=== PATIENT | male | born 1965 | race Caucasian/White ===

== ENCOUNTER 2019-09-29 14:43 | Outpatient (CLI) | payer MEDICARE ==
[~2019-09-29 14:43] MED LIST: Iopamidol 370 76% 100 ML VIAL ONE
--- NOTE | 2019-09-29 15:45 | CT ---
CTA OF THE HEAD WITH AND WITHOUT IV CONTRAST AND 3D REFORMATTED IMAGING CTA OF THE NECK WITH IV CONTRAST AND 3D REFORMATTED IMAGING 3D VOLUME RENDERING: DATE: 09/29/2019. TIME: 12:00 AM. HISTORY: Occlusion. COMPARISON: None. FINDINGS: There is focal decreased attenuation involving anterior division left MCA compatible with subacute in farction. There is deep white matter lacunar infarction, multifocal, involving bilateral centrum semiovale. Right: CCA:There is a short segment moderate stenosis of the proximal right CCA approximately 50% stenosis r elated to soft plaque. ICA:There is calcified and noncalcified plaque involving the carotid bulb and extending into the prox imal aspect of the cervical right ICA with mild to moderate stenosis. There is calcification at the intracranial course of the distal right ICA and involving the carotid terminus where there is moderat e focal stenosis. MCA:No significant stenosis. CYNDIE:No significant stenosis. [employer]:No significant stenosis. LEFT: CCA:There is soft plaque of the mid left common carotid artery, resulting in mild to moderate stenosi s. ICA:There is occlusion of the proximal left ICA by predominantly soft plaque, just distal to the mcfarland tid bulb. There is resultant diffuse markedly narrowing of the contrast opacified ICA lumen to the level of the carotid terminus which could either relate to diffuse stenosis, or dissection. MCA:No significant stenosis. CYNDIE:No significant stenosis. [employer]VER:No significant stenosis. Vertebrobasilar System: Left Vertebral:Diffuse near complete absence of contrast throughout the left vertebral artery. Right Vertebral:No significant stenosis. Basilar:No significant stenosis. IMPRESSION: 1. Occlusion of the left internal carotid artery with resultant marked narrowing of the remaining, c ephalad, cervical left internal carotic artery. 2. Near complete absence of contrast throughout the left vertebral artery Transcribed Date/Time: 09/29/2019 4:01 PM
--- NOTE | 2019-09-29 15:48 | ULT ---
BILATERAL CAROTID DUPLEX ULTRASOUND: HISTORY: Occlusion TECHNIQUE: Grayscale, color-flow and spectral Doppler ultrasound imaging of the extracranial carotid artery syst ems was performed bilaterally. FINDINGS: Exam is performed in conjunction with CTA neck. Severe plaque formation. As is depicted on the concurrent CTA, there is occlusion of the proximal left cervical ICA, as well a s absence of flow of the left vertebral artery. There is no hemodynamically significant stenosis of the imaged right ICA. Antegrade flow of the right vertebral artery is present. IMPRESSION: Concordant findings with concurrent CTA of neck, with evidence of occlusive plaque of the cervical le ft internal carotid artery, and absence of flow within the left vertebral artery. Transcribed Date/Time: 09/29/2019 3:57 PM
== END 2019-09-29 14:44 | disposition home or self-care (01) ==
LOC: BICULT 14:43
PROVIDERS: ATTEND Surgery
DX: I65.22 Occlusion and stenosis of left carotid artery (principal)
CPT/HCPCS: 70496; 70498; 93880; Q9967

== ENCOUNTER 2019-11-05 07:09 | Outpatient (CLI) | payer MEDICARE ==
--- NOTE | 2019-11-05 11:42 | CT ---
EXAM: CTA of the chest HISTORY: Left internal carotid artery occlusion with ostial stenosis of the left common carotid arter y COMPARISON: CTA neck 09/29/2019 TECHNIQUE: Multiple contiguous axial images were obtained a CTA of the chest with contrast. Sagittal and coronal 3-D MIP reformats were performed. FINDINGS: HEART: Normal in size without focal cardiac abnormality. PULMONARY ARTERIES: Normal in caliber without filling defects to suggest pulmonary emboli. THORACIC AORTA: Normal in caliber without evidence dissection or aneurysmal dilatation. AORTIC ARCH VESSELS: A mild amount of atherosclerotic disease is seen at the ostium of the left commo n carotid artery with less than 10% stenosis. A moderate amount of soft plaque is seen in the left subclavian artery with approximately 70 % stenosis. No significant atherosclerotic disease is seen in the innominate artery, right subclavian artery, or right common carotid artery. No flow is seen in the left vertebral artery. MEDIASTINUM: No hilar or mediastinal lymphadenopathy. LUNGS: No focal infiltrates or masses. PLEURAL SPACE: No pleural effusion or pneumothorax. CHEST WALL SOFT TISSUES: Unremarkable VISUALIZED OSSEOUS STRUCTURES: Unremarkable VISUALIZED SUBDIAPHRAGMATIC STRUCTURES: Diffuse fatty infiltration of the liver. IMPRESSION: 1. Stenosis of the left subclavian artery as above 2. No significant stenosis of the left common carotid artery. 3. Fatty liver
== END 2019-11-05 07:10 | disposition home or self-care (01) ==
LOC: CT 07:09
PROVIDERS: ATTEND Internal Medicine Cardiovascular Disease
DX: I65.22 Occlusion and stenosis of left carotid artery (principal); K76.0 Fatty (change of) liver, not elsewhere classified; I70.208 Unspecified atherosclerosis of native arteries of extremities, other extremity
CPT/HCPCS: 71275

== ENCOUNTER 2020-10-16 11:03 | Outpatient (CLI) | payer MEDICARE ==
[2020-10-17 02:15] LABS: SARS-CoV-2 MS2 Positive; SARS-CoV-2 N Gene Negative; SARS-CoV-2 S Gene Negative; SARS-CoV-2 by NAA Not Detected (NotDetected); SARS-CoV-2 orf1ab Negative
== END 2020-10-16 11:04 | disposition home or self-care (01) ==
LOC: LABBT 11:03
PROVIDERS: ATTEND Ophthalmology Retina Specialist
DX: T85.22XA Displacement of intraocular lens, initial encounter (principal); Z20.828 Contact with and (suspected) exposure to other viral communicable diseases
CPT/HCPCS: 87635; U0003

== ENCOUNTER 2020-10-19 09:55 | Day surgery (SDC) | payer MEDICARE ==
[2020-10-18 10:54] VITALS: BMI 20.9
[~2020-10-19 09:55] MED LIST changes: +EPINEPHrine 0.3 MG in Ophthalmic Irrigation Solution 500 ML IRR SCH; -Iopamidol 370 76% 100 ML VIAL ONE
[2020-10-19] MEDS ORDERED: Phenylephrine 2.5% Ophth Soln 5 ML BOT ONE (10:01)
[2020-10-19] MEDS ORDERED: Cyclopentolate HCl 1% 5 ML BOT ONE (10:01)
[2020-10-19] MEDS ORDERED: Midazolam HCl 2 mg/2 ml Vial ONE (10:02)
[2020-10-19] MEDS ORDERED: Fentanyl 100 MCG/2 ML VIAL ONE (10:02)
[2020-10-19] MEDS ORDERED: Famotidine/PF 20 mg/2ml Vial ONE (11:05)
[2020-10-19] MEDS ORDERED: Ondansetron PF 4 MG/2 ML Vial ONE (11:08)
[2020-10-19] MEDS ORDERED: Maxitrol 0.1% Opth Oint 3.5 GM TUBE ONE (11:08)
[2020-10-19] MEDS ORDERED: PHENYLEPHRINE-NS 100 MCG/ML 10 ML SYRINGE ONE (11:08)
[2020-10-19] MEDS ORDERED: PROPOFOL 200 MG/20 ML VIAL ONE (11:08)
[2020-10-19] MEDS ORDERED: Triamcinolone 40 MG/ML VIAL ONE (11:08)
[2020-10-19] MEDS ORDERED: Lidocaine 4% PF 5 ML AMP ONE (11:08)
[2020-10-19] MEDS ORDERED: CEFAZOLIN 1 GM VIAL ONE (11:08)
[2020-10-19] MEDS ORDERED: Bupivacaine PF 0.75% SDV 10 ML ONE (11:08)
[2020-10-19] MEDS ORDERED: Metoclopramide HCl 10 MG/2 ML VIAL ONE (11:08)
[2020-10-19] MEDS ORDERED: Phenylephrine 10 MG/ML VIAL ONE (11:08)
[2020-10-19] MEDS ORDERED: Lidocaine 1% PF 5 ML VIAL ONE ×2 (11:08)
--- NOTE | 2020-10-20 09:04 | OP ---
DATE OF PROCEDURE: 10/19/2020 PREOPERATIVE DIAGNOSIS: Dislocated intraocular lens. POSTOPERATIVE DIAGNOSES: Dislocated intraocular lens and retinal detachment, left eye. PROCEDURES PERFORMED: Pars plana vitrectomy, intraocular lens repositioning, and retinal detachment repair. DESCRIPTION OF PROCEDURE: The patient was identified in the preoperative holding area. Appropriate informed consent for the planned surgical procedure on the left eye had been obtained. The patient was taken to the operative suite. Appropriate cardiopulmonary monitoring was established. General endotracheal anesthesia was initiated. The patient was prepped and draped in usual sterile manner for ophthalmic surgery left eye. Lid speculum was placed in the left eye. A 25-gauge trocars placed infratemporally, supranasally, and inferotemporally. Light pipe and vitreous cutter inserted into the eye. Core vitrectomy was performed. A detachment, macula on peripheral inferior detachment was noted. Intra-ocular lens was repositioned anteriorly and the haptics and lens were sutured to the iris using 10-0 nylon suture. One eye wall was noted to be well centered. Attention was directed to the posterior pole. A posterior drained retinotomy was created inferotemporally. A 360 laser was placed after fluid was drained from underneath the retina. Complete air-fluid exchange was performed and 10 minutes being left for fluid to drain posteriorly. A 15% propane gas was infused into the eye. Sclerotomy was suture closed. Retrobulbar Kenalog and subconjunctival Ancef were placed. Antibiotic ointment was placed. The eye was patched and shielded. The patient was taken to postop recovery unit in good condition having suffered no immediate perioperative complications. The patient is advised to position left side down and followup appointment with Dr. Wade. Job ID: [id number]
== END 2020-10-19 14:23 | disposition home or self-care (01) ==
LOC: SDC 09:55
PROVIDERS: ATTEND Ophthalmology Retina Specialist
PROC: 08SK3ZZ Reposition Left Lens, Percutaneous Approach (ICD-10-PCS; principal; 2020-10-19)
DX: H33.22 Serous retinal detachment, left eye (principal); T85.22XA Displacement of intraocular lens, initial encounter; I10 Essential (primary) hypertension; E78.5 Hyperlipidemia, unspecified; Z79.02 Long term (current) use of antithrombotics/antiplatelets; Z79.82 Long term (current) use of aspirin; Z79.899 Other long term (current) drug therapy; Z87.891 Personal history of nicotine dependence; Z86.73 Personal history of transient ischemic attack (TIA), and cerebral infarction without residual deficits; Z88.6 Allergy status to analgesic agent; Z21 Asymptomatic human immunodeficiency virus [HIV] infection status
CPT/HCPCS: 67025; J0171; J0690; J2001; J2250; J2370; J2405; J2704; J2765; J3010; J3301; J3490; S0028